=== PATIENT | male | born 1965 | race Caucasian/White ===

== ENCOUNTER 2023-03-20 16:06 | Outpatient (CLI) | payer BC, SELFPAY ==
--- NOTE | ~2023-03-20 | XR_ITS ---
Cervical Spine: AP, lateral, open-mouth views Clinical History: Pain Findings: The normal lordotic curve is maintained. The vertebral bodies and posterior elements appea r intact. There is mild degenerative disc change at C5-C6 and C6-C7, anterior marginal osteophytes ar e present. There is mild facet arthropathy in the cervical spine. Pre-vertebral soft tissues are unre markable. Impression: Mild degenerative spondylosis, as above. Reviewed, dictated and finalized at location M. Impression: Mild degenerative spondylosis, as above.
--- NOTE | ~2023-03-20 | XR_ITS ---
EXAM: XR elbow RT min 3V DATE: 03/20/2023 16:40 HISTORY: PAIN X 1 MONTH/NO TRAUMA . COMPARISON: None available. FINDINGS: Normal mineralization. No fracture or dislocation. No lytic or blastic lesion. Mild degene rative change at the elbow. Bilateral epicondylar and olecranon enthesopathy. No erosion or periostea l change. Soft tissues within normal limits. No fat pad displacement. IMPRESSION: Mild degenerative changes. No acute osseous finding in the right elbow. Reviewed, dictated and finalized at location K. IMPRESSION: Mild degenerative changes. No acute osseous finding in the right el bow.
--- NOTE | ~2023-03-20 | XR_ITS ---
EXAM: XR wrist RT min 3V DATE: 03/20/2023 16:40 HISTORY: PAIN X 1 WEEK/NO TRAUMA . COMPARISON: None available. FINDINGS: Normal mineralization. No fracture or dislocation. No lytic or blastic lesion. Mild scatte red degenerative changes. No erosion or periosteal change. Soft tissues within normal limits. IMPRESSION: No acute osseous finding in the right wrist. Reviewed, dictated and finalized at location K.
== END 2023-03-20 16:07 | disposition home or self-care (01) ==
LOC: CHSIMG 16:12
PROVIDERS: PCP Internal Medicine; Visit Provider Internal Medicine
DX: M54.2 Cervicalgia (principal); M25.521 Pain in right elbow; M43.02 Spondylolysis, cervical region
CPT/HCPCS: 72050; 73080; 73110